=== PATIENT | female | born 1940 | race Caucasian/White ===

== ENCOUNTER → 2017-12-29 | Outpatient (CLI) | payer OTHER, BC ==
[~2017-12-29] MED LIST: ACETAMINOPHN-T1 EACH PO; ASPIR-LOW81 MG PO; Aspirin E.C. PO; BENTYL PO; Bentyl PO; Cordarone, Pacerone PO; METAMUCIL MULT425 GM PO; METOPROLOL SUCC25 MG PO; Martinic PO; Metamucil Packet PO; NEXIUM40 MG PO; PLAQUENIL200 MG PO; PROLIA IM; PROLIA60 MG/1 ML SC; Plaquenil PO; Ultracet PO; VITAMIN B12-FO1 EACH PO; VITAMIN D PO; Vitamin D, Drisdol PO; ZOLOFT50 MG PO; Zoloft PO
== END | disposition home or self-care (01) ==
LOC: NUC 09:00
DX: E21.3 Hyperparathyroidism, unspecified (principal)
CPT/HCPCS: 78071; A9500; A9512

== ENCOUNTER 2018-01-30 23:57 | Emergency (ER) | payer OTHER, BC ==
[~2018-01-30] VITALS: Ht 152.4 cm; Wt 100.9 kg
[2018-01-31] MEDS ORDERED: NORCO 7.5/321 TABLET PO (02:29)
[2018-01-31 02:46] VITALS: BP 138/87
== END 2018-01-31 02:48 | disposition home or self-care (01) ==
LOC: EME 23:57
PROC: 2W3DX1Z Immobilization of Left Lower Arm using Splint (ICD-10-PCS; principal; 2018-01-31)
DX: S63.502A Unspecified sprain of left wrist, initial encounter (principal); M06.9 Rheumatoid arthritis, unspecified; R26.9 Unspecified abnormalities of gait and mobility; W18.30XA Fall on same level, unspecified, initial encounter; Y93.01 Activity, walking, marching and hiking; Z88.2 Allergy status to sulfonamides
CPT/HCPCS: 73110; 99281; 99283